=== PATIENT | female | born 1975 | race Caucasian/White ===

== ENCOUNTER 2024-01-27 23:55 | Emergency (ER) | payer MEDICAID ==
[~2024-01-27] VITALS: Ht 160 cm; Wt 69.4 kg
[2024-01-28 00:13] VITALS: BP 183/109; PULSE 75; RESP 18; TEMP 98.2; O2SAT 100
[2024-01-28] MEDS ORDERED: CEPH-588 PO (02:25)
[2024-01-28 02:28] VITALS: BP 162/100; PULSE 75; RESP 18; TEMP 98.2; O2SAT 100
== END 2024-01-28 02:28 | disposition home or self-care (01) ==
LOC: MED 23:55
DX: L03.317 Cellulitis of buttock (principal); R03.0 Elevated blood-pressure reading, without diagnosis of hypertension; Z79.2 Long term (current) use of antibiotics
CPT/HCPCS: 99283